=== PATIENT | male | born 1985 | race American Indian/Alaskan Native ===

== ENCOUNTER 2017-05-16 04:23 | Emergency (ER) | payer SELFPAY ==
[2017-05-16 05:04] LABS: Basophils % (Auto) 0.6 % (0.0-1.8); Eosinophils % (Auto) 1.9 % (0.0-4.3); Hematocrit 40.4 % (35.5-45.6); Hemoglobin 13.2 gm/dl (11.8-15.2); Mean Corpuscular HGB Conc 33 % (32-34); Mean Corpuscular Hemoglobin 29 pg (28-32); Mean Corpuscular Volume 89 fl (84-94); Platelet Count 160 K/mm3 (140-440); Red Blood Count 4.55 M/mm3 (3.65-5.03); Red Cell Distribution Width 12.8 % (13.2-15.2); White Blood Count 5.7 K/mm3 (4.5-11.0)
--- NOTE | 2017-05-16 05:07 | XRay Report ---
FINAL REPORT EXAM: XR CHEST ROUTINE 2V HISTORY: loc TECHNIQUE: PA and lateral views of the chest were submitted. FINDINGS: Heart size and mediastinum appear normal. The lungs are clear. Pleural fluid is not seen. The bones and soft tissues reveal a mild dextroscoliosis of the thoracic spine. IMPRESSION: No active chest disease.
[2017-05-16 05:27] LABS: Anion Gap 17 mmol/L; BUN/Creatinine Ratio 22; Blood Urea Nitrogen 22 mg/dL (9-20); Calcium 9.1 mg/dL (8.4-10.2); Carbon Dioxide 28 mmol/L (22-30); Chloride 101.8 mmol/L (98-107); Glucose 103 mg/dL (75-100); Potassium 4.3 mmol/L (3.6-5.0); Sodium 142 mmol/L (137-145)
--- NOTE | 2017-05-16 11:25 | Emergency Department Report ---
ED Syncope HPI - General Chief Complaint: Syncope Stated Complaint: PASSED OUT Time Seen by Provider: 05/16/17 11:20 - History of Present Illness Initial Comments: 31-year-old male who was straining on the toilet having a bowel movement when he passed out. Patient states that he felt similar pain around his hernia was straining at bowel movement and then passed out. He's had this happen once in the past. He has no chest pain or shortness of breath. He has no other medical problems. Timing/Prior Episodes: single episode today Precipitating Factors: Positive: none Context: sitting Loss of Consciousness: brief (seconds) Current Symptoms: back to normal - Related Data Allergies/Adverse Reactions: Allergies acetaminophen [From Percocet] Allergy (Verified 05/16/17 04:27) Seizure oxycodone [From Percocet] Allergy (Verified 05/16/17 04:27) Seizure Home Medications: Ambulatory Orders Docusate Sodium [Colace] 100 mg PO BID #60 capsule 05/16/17 ED Review of Systems ROS: Stated complaint: PASSED OUT Other details as noted in HPI Comment: All other systems reviewed and negative Constitutional: denies: chills, fever Eyes: denies: vision change Respiratory: denies: cough, shortness of breath, wheezing Cardiovascular: denies: chest pain, palpitations Endocrine: no symptoms reported Gastrointestinal: denies: abdominal pain, nausea, diarrhea Genitourinary: denies: urgency, dysuria Musculoskeletal: denies: back pain, joint swelling, arthralgia Skin: denies: rash, lesions Neurological: denies: headache, weakness, paresthesias Psychiatric: denies: anxiety, depression Hematological/Lymphatic: denies: easy bleeding, easy bruising ED Past Medical Hx - Past Medical History Previous Medical History?: Yes Additional medical history: hernia - Surgical History Past Surgical History?: Yes Additional Surgical History: B/L hip replacement - Family History Family history: no significant - Social History Smoking Status: Former Smoker Substance Use Type: None - Medications Home Medications: Home Medications Medication Instructions Recorded Confirmed Last Taken Type Docusate Sodium [Colace] 100 mg PO BID #60 capsule 05/16/17 Unknown Rx ED Physical Exam - General Limitations: No Limitations General appearance: alert, in no apparent distress - Head Head exam: Present: atraumatic, normocephalic - Eye Eye exam: Present: normal appearance. Absent: scleral icterus, conjunctival injection - ENT ENT exam: Present: mucous membranes moist - Neck Neck exam: Present: normal inspection - Respiratory Respiratory exam: Present: normal lung sounds bilaterally. Absent: respiratory distress - Cardiovascular Cardiovascular Exam: Present: normal rhythm, tachycardia. Absent: systolic murmur, diastolic murmur, rubs, gallop - GI/Abdominal GI/Abdominal exam: Present: soft, normal bowel sounds - Rectal Rectal exam: Present: deferred - Extremities Exam Extremities exam: Present: normal inspection - Back Exam Back exam: Present: normal inspection - Neurological Exam Neurological exam: Present: alert, oriented X3 - Psychiatric Psychiatric exam: Present: normal affect, normal mood - Skin Skin exam: Present: warm, dry, intact, normal color. Absent: rash ED Course Vital Signs 05/16/17 05/16/17 05/16/17 04:27 04:28 04:30 Temperature 97.7 F 97.7 F 97.7 F Pulse Rate 46 L 46 L Respiratory 12 12 12 Rate Blood Pressure 113/63 113/63 Blood Pressure 113/63 [Right] O2 Sat by Pulse 99 Oximetry 05/16/17 05/16/17 09:28 11:07 Temperature Pulse Rate 54 L 43 L Respiratory 14 13 Rate Blood Pressure 117/77 108/65 Blood Pressure [Right] O2 Sat by Pulse 100 98 Oximetry ED Medical Decision Making - Lab Data Result diagrams: 05/16/17 04:51 05/16/17 04:51 Laboratory Results - last 24 hr 05/16/17 05/16/17 05/16/17 04:51 04:51 04:51 WBC 5.7 RBC 4.55 Hgb 13.2 Hct 40.4 MCV 89 MCH 29 MCHC 33 RDW 12.8 L Plt Count 160 Lymph % (Auto) 20.9 [place] % (Auto) 8.3 H Eos % (Auto) 1.9 Baso % (Auto) 0.6 Lymph # 1.2 [place] # 0.5 Eos # 0.1 Baso # 0.0 Seg Neutrophils % 68.3 Seg Neutrophils # 3.9 Sodium 142 Potassium 4.3 Chloride 101.8 Carbon Dioxide 28 Anion Gap 17 BUN 22 H Creatinine 1.0 Estimated GFR > 60 BUN/Creatinine Ratio 22 Glucose 103 H Calcium 9.1 Troponin T < 0.010 TSH 1.940 Free T4 1.15 05/16/17 07:47 WBC RBC Hgb Hct MCV MCH MCHC RDW Plt Count Lymph % (Auto) [place] % (Auto) Eos % (Auto) Baso % (Auto) Lymph # [place] # Eos # Baso # Seg Neutrophils % Seg Neutrophils # Sodium Potassium Chloride Carbon Dioxide Anion Gap BUN Creatinine Estimated GFR BUN/Creatinine Ratio Glucose Calcium Troponin T < 0.010 TSH Free T4 - Medical Decision Making 20-year-old male with syncopal episode straining at bowel movement. Patient has no palpable hernia currently. He appears very comfortable. Denies chest pain nausea vomiting. Otherwise appears well. EKG shows just sinus bradycardia. Labs are unremarkable. At this point plan discharge patient home with referral for follow-up outpatient surgery. Portions of this chart were dictated with dictation software. There may be dictation errors contained within this note. Critical care attestation.: If time is entered above; I have spent that time in minutes in the direct care of this critically ill patient, excluding procedure time. ED Disposition Clinical Impression: Syncope, Hernia Disposition: DC-01 TO HOME OR SELFCARE Is pt being admited?: No Condition: Stable Instructions: Syncope (ED), Inguinal Hernia (ED) Prescriptions: Docusate Sodium [Colace] 100 mg PO BID #60 capsule Referrals: PRIMARY CARE, [Primary Care Provider] - 3-5 Days BERONICA GONCALVES DO [Staff Physician] - 3-5 Days (Call for follow-up)
[2017-05-16 11:29] VITALS: BP 115/64
== END 2017-05-16 11:36 | disposition home or self-care (01) ==
LOC: ED 04:23
DX: R55 Syncope and collapse (principal); K46.9 Unspecified abdominal hernia without obstruction or gangrene; Z88.6 Allergy status to analgesic agent; Z87.891 Personal history of nicotine dependence
CPT/HCPCS: 36415; 71020; 80048; 84439; 84443; 84484; 85025; 93005; 93010; 99285